=== PATIENT | female | born 1950 | race Caucasian/White ===

== ENCOUNTER 2018-05-10 11:21 | Emergency (ER) | payer MEDICARE ==
[2018-05-10 11:35] VITALS: RESP 18; BMI 31.3
[2018-05-10] MEDS ORDERED: Sodium Chloride 0.9% 1,000 ML IV STA (11:51)
[2018-05-10] MEDS ORDERED: Iohexol 240 (50 ml) PO ONE (11:52)
[2018-05-10] MEDS ORDERED: Iohexol 240 (50 ml) ONE (12:11)
--- NOTE | 2018-05-10 12:44 | ED PDOC ---
HPI: Abdomen Time Seen by Provider: 05/10/18 11:36 Chief Complaint (Nursing): Abdominal Pain Chief Complaint (Provider): abdominal pain constipation History Per: Patient History/Exam Limitations: no limitations Onset/Duration Of Symptoms: Days (3), Gradual Current Symptoms Are (Timing): Still Present Location Of Pain/Discomfort: Diffuse Quality Of Discomfort: Cramping Associated Symptoms: Nausea, Vomiting, Loss Of Appetite, Constipation. denies: Urinary Symptoms Exacerbating Factors: Food, Other (milk of magnesia) Alleviating Factors: None Additional Complaint(s): 68 female c/o crampy abdominal pain with 3-4 episodes nonbloody vomiting and new onset constipation starting about 3 days ago. Took milk of magnesia over the weekend and pain worsened, crampy, with vomiting thereafter. Denies blood per rectum, fever, syncope or urinary symptoms/ Past Medical History Reviewed: Historical Data, Nursing Documentation, Vital Signs Vital Signs: Last Vital Signs Temp 98.3 F 05/10/18 11:34 Pulse 112 H 05/10/18 11:34 Resp 18 05/10/18 11:34 BP 136/95 H 05/10/18 11:34 Pulse Ox 96 05/10/18 11:34 - Medical History PMH: HTN, Hypercholesterolemia - Surgical History Surgical History: - Family History Family History: States: Unknown Family Hx - Social History Current smoker - smoking cessation education provided: No - Home Medications Home Medications: Ambulatory Orders Medication Instructions Recorded Bisacodyl [Dulcolax] 10 mg RC BID PRN #10 supp.rect 05/10/18 Ondansetron ODT [Zofran ODT] 4 mg PO Q6 PRN #10 odt 05/10/18 Peg Electrolyte Lavage Solut 500 ml PO BID PRN #1 bottle 05/10/18 [Golytely] Ranitidine HCl [Zantac] 150 mg PO BID #14 tablet 05/10/18 Sod Phos,M-B/Na Phos,Di-Ba [Fleet 135 ml RC BID PRN #4 enema 05/10/18 Enema] - Allergies Allergies/Adverse Reactions: Allergies Allergy/AdvReac Type Severity Reaction Status Date / Time No Known Allergies Allergy Verified 05/10/18 11:50 Review of Systems ROS Statement: Except As Marked, All Systems Reviewed And Found Negative Constitutional: Negative for: Fever, Chills ENT: Negative for: Throat Pain Cardiovascular: Negative for: Chest Pain Respiratory: Negative for: Shortness of Breath Gastrointestinal: Positive for: Vomiting, Abdominal Pain, Constipation Genitourinary Female: Negative for: Dysuria, Hematuria Musculoskeletal: Negative for: Neck Pain, Back Pain Skin: Negative for: Rash, Lesions, Jaundice Neurological: Negative for: Weakness, Numbness, Headache, Dizziness Psych: Negative for: Suicidal ideation Physical Exam - Reviewed Nursing Documentation Reviewed: Yes Vital Signs Reviewed: Yes - Physical Exam Appears: Positive for: Well, Non-toxic, No Acute Distress Head Exam: Positive for: ATRAUMATIC, NORMAL INSPECTION, NORMOCEPHALIC Skin: Positive for: Normal Color, Warm, DRY Eye Exam: Positive for: EOMI, Normal appearance, PERRL ENT: Positive for: Normal ENT Inspection Neck: Positive for: Normal, Painless ROM Cardiovascular/Chest: Positive for: Regular Rate, Rhythm Respiratory: Positive for: CNT, Normal Breath Sounds Gastrointestinal/Abdominal: Positive for: Soft, Tenderness (mild diffuse tenderness), Distended (softly) Back: Positive for: Normal Inspection Rectal: Positive for: Rectal Tone Is: (normal), Other (small pliable stools rectal vault no impaction). Negative for: Black Stool, Blood Streaked Stool, Tenderness Extremity: Positive for: Normal ROM Neurologic/Psych: Positive for: Alert, Oriented. Negative for: Motor/Sensory Deficits - Laboratory Results Result Diagrams: 05/10/18 12:40 05/10/18 12:40 - ECG O2 Sat by Pulse Oximetry: 96 Medical Decision Making Medical Decision Making: workup for new abd pain with constipation and nausea in elderly female initiated obtain labs, CT abd pelv r/o obstruction. labs reviewed, reveal elev WBC 17.9 chem unremarkable 05/10/2018 PROCEDURE: CT Abdomen and Pelvis. HISTORY: Abdominal pain; new onset constipation COMPARISON: No prior study available for comparison TECHNIQUE: Contiguous axial images of the abdomen and pelvis performed following oral and intravenous injection of approximately 95 cc Omnipaque 300 contrast material. Additional 2D sagittal and coronal reformats generated. Radiation dose: Total exam DLP = 833.19 mGy-cm. This CT exam was performed using one or more of the following dose reduction techniques: Automated exposure control, adjustment of the mA and/or kV according to patient size, and/or use of iterative reconstruction technique. FINDINGS: LOWER THORAX: Heart size is borderline enlarged. There is a small hiatal hernia with oral contrast material seen in the distal esophagus which could be secondary to a dysmotility and/or reflux. Minimal wall thickening of the distal esophagus which may in part be secondary to protrusion of gastric mucosa. Clinical correlation recommended to determine whether endoscopy follow-up is indicated given reflux which is evident. Mild passive/dependent type atelectasis. There also appears to be some chronic atelectasis/scarring changes the lingular and middle lobe regions. LIVER: Liver exhibits relatively normal size measuring approximately 15 cm in CC dimension. Mild fatty hepatic infiltration.. There is a very tiny subcentimeter focus low attenuation anterior superior aspect medial segment left lobe liver just to the left midline.. There is a slightly larger elliptical shaped focus low attenuation also noted in the superior aspect right lobe liver. Both of these lesions seen on axial series 3, image number 26 . Another small focus of low attenuation inferior aspect left lobe liver seen on axial series 3, image 44 and similar focus inferior aspect right lobe seen on axial series 3, image 53. These foci too small to characterize though could represent small cysts and/or hemangiomas. Follow-up at interval could be performed to assess stability portal and splenic veins opacified. GALLBLADDER AND BILE DUCTS: Gallbladder physiologically distended. No evidence of intraluminal gallbladder calculi. PANCREAS: Pancreas is atrophic and fatty replaced. No obvious pancreatic masses collections or calcifications. SPLEEN: Spleen exhibits normal size and attenuation pattern without mass collection or calcification. Of. There is a small amount of perisplenic ascites of uncertain etiology. ADRENALS: There is an approximately 18 mm left adrenal nodule with a elliptical shaped eccentric focus of low attenuation. Follow-up nonemergent noncontrast MRI of the adrenal glands could be performed for further evaluation. KIDNEYS AND URETERS: Kidneys demonstrate relatively symmetric nephrograms. No evidence of nephrolithiasis or hydronephrosis. There are multiple low-attenuation foci scattered throughout both kidneys the largest of which is located along the posteromedial aspect midpole right kidney that is partially exophytic measuring 3.3 x 3.0 cm with Hounsfield units ranging from 10 to 20. This probably represents a hyperdense cyst. The largest partially exophytic low-attenuation lesion arising from the posterior cortex upper/midpole left kidney, measures approximately 17 mm, and exhibits Hounsfield units in the upper teens that may also represent small cyst consistent with a slightly hyperdense cyst. The other small foci too small to characterize. BLADDER: Urinary bladder incompletely distended with minimal wall thickening. Rule out cystitis. REPRODUCTIVE: Unremarkable as visualized. There is a tiny amount of free fluid seen in the cul de sac and adjacent to the left aspect of the uterine fundus. APPENDIX: Normal appendix. BOWEL: Evaluation of the bowel is somewhat limited due to incomplete opacification. The stomach is distended with oral contrast material and air. Visualized loops of small bowel exhibit normal contour and caliber. No evidence of acute mechanical small bowel obstruction. There is a large amount of stool seen throughout the colon from cecum to the distal descending colon region. . Scattered colonic diverticula also seen along the sigmoid colon however no definitive radiographic evidence of acute diverticulitis. The largest amount of which is located in the cecum. Findings are consistent with this patient's history of constipation. There are a few scattered colonic diverticula also seen PERITONEUM: No gross free intraperitoneal air. Small amount of perisplenic and pelvic ascites.. Small amount of ascites also seen adjacent to the inferior aspect of the cecum.. In addition, a small localized area of ascites left anterolateral aspect of the lower abdomen bordering the peritoneal surface. Small fat containing umbilical hernia. LYMPH NODES: Unremarkable. No enlarged lymph nodes. VASCULATURE: Unremarkable. No aortic aneurysm. Mild aortic atherosclerotic calcification or mural plaque present. BONES: Multilevel degenerative spondylosis of the lower thoracic and lumbar spine. Slight anterior subluxation L4 over L5 on felt to be secondary to hypertrophic facets.. Note made of scattered lucencies throughout the lower thoracic and upp er lumbar spine nonspecific. Clinical correlation recommended. OTHER FINDINGS: None. IMPRESSION: Findings consistent with cysts fairly significant constipation. Scattered colonic diverticula without radiographic evidence of acute diverticulitis as detailed above. There is a small amount of abdominal and pelvic ascites as detailed above. Moderate fatty hepatic infiltration. There are multiple tiny low-attenuation foci scattered throughout the hepatic parenchyma too small to characterize though may represent some cysts and/or small hemangiomata. Follow-up interval recommended to assess stability. Moderate fatty hepatic infiltration. Left adrenal mass. Recommend follow-up nonemergent noncontrast MRI of the adrenal glands. Multiple of low-attenuation foci both kidneys likely representing renal cysts however follow-up interval recommended also to assess stability. There are scattered nonspecific lucency seen throughout the thoracic and lumbar spine of uncertain etiology. See above discussion for additional details and findings rectal exam performed w MILLI Dorman as motor runner after verbal consent obtained, no fecal impaction palpable 530p All results explained including adrenal mass and need for followup MRI via PMD. Rx trial of GoLytlely, suppository and enema for constipation Referral GI also. PMD in [facility]. Disposition - Clinical Impression Clinical Impression: Constipation, Abdominal discomfort, Vomiting, Adrenal mass - Patient ED Disposition Is Patient to be Admitted: No Counseled Patient/Family Regarding: Studies Performed, Diagnosis, Need For Followup, Rx Given - Disposition Referrals: Ozzie So MD [Staff Provider] - Disposition: Routine/Home Disposition Time: 18:27 Condition: STABLE Additional Instructions: Followup with your doctor for dedicated imaging of your adrenal gland due to mass seen on CT. Trial of medications for constipation. Use enema, suppository, and oral medications as directed. Return to ER for any worse or new symptoms. Patient Name / ID : JOSH MAI / [id number] Exam Date : 05/10/2018 15:47:48 ( Approved ) Study Comment : Sex / Age : F / 68Y Dictator : Luis Boateng MD Search Marketing Coordinator : Banking Teacher : Luis Boateng MD Approver2 : Report Date : 05/10/2018 16:03:54 PROCEDURE: CT Abdomen and Pelvis. HISTORY: Abdominal pain; new onset constipation COMPARISON: No prior study available for comparison TECHNIQUE: Contiguous axial images of the abdomen and pelvis performed following oral and intravenous injection of approximately 95 cc Omnipaque 300 contrast material. Additional 2D sagittal and coronal reformats generated. Radiation dose: Total exam DLP = 833.19 mGy-cm. This CT exam was performed using one or more of the following dose reduction techniques: Automated exposure control, adjustment of the mA and/or kV according to patient size, and/or use of iterative reconstruction technique. FINDINGS: LOWER THORAX: Heart size is borderline enlarged. There is a small hiatal hernia with oral contrast material seen in the distal esophagus which could be secondary to a dysmotility and/or reflux. Minimal wall thickening of the distal esophagus which may in part be secondary to protrusion of gastric mucosa. Clinical correlation recommended to determine whether endoscopy follow-up is indicated given reflux which is evident. Mild passive/dependent type atelectasis. There also appears to be some chronic atelectasis/scarring changes the lingular and middle lobe regions. LIVER: Liver exhibits relatively normal size measuring approximately 15 cm in CC dimension. Mild fatty hepatic infiltration.. There is a very tiny subcentimeter focus low attenuation anterior superior aspect medial segment left lobe liver just to the left midline.. There is a slightly larger elliptical shaped focus low attenuation also noted in the superior aspect right lobe liver. Both of these lesions seen on axial series 3, image number 26 . Another small focus of low attenuation inferior aspect left lobe liver seen on axial series 3, image 44 and similar focus inferior aspect right lobe seen on axial series 3, image 53. These foci too small to characterize though could represent small cysts and/or hemangiomas. Follow-up at interval could be performed to assess stability portal and splenic veins opacified. GALLBLADDER AND BILE DUCTS: Gallbladder physiologically distended. No evidence of intraluminal gallbladder calculi. PANCREAS: Pancreas is atrophic and fatty replaced. No obvious pancreatic masses collections or calcifications. SPLEEN: Spleen exhibits normal size and attenuation pattern without mass collection or calcification. Of. There is a small amount of perisplenic ascites of uncertain etiology. ADRENALS: There is an approximately 18 mm left adrenal nodule with a elliptical shaped eccentric focus of low attenuation. Follow-up nonemergent noncontrast MRI of the adrenal glands could be performed for further evaluation. KIDNEYS AND URETERS: Kidneys demonstrate relatively symmetric nephrograms. No evidence of nephrolithiasis or hydronephrosis. There are multiple low-attenuation foci scattered throughout both kidneys the largest of which is located along the pos teromedial aspect midpole right kidney that is partially exophytic measuring 3.3 x 3.0 cm with Hounsfield units ranging from 10 to 20. This probably represents a hyperdense cyst. The largest partially exophytic low-attenuation lesion arising from the posterior cortex upper/midpole left kidney, measures approximately 17 mm, and exhibits Hounsfield units in the upper teens that may also represent small cyst consistent with a slightly hyperdense cyst. The other small foci too small to characterize. BLADDER: Urinary bladder incompletely distended with minimal wall thickening. Rule out cystitis. REPRODUCTIVE: Unremarkable as visualized. There is a tiny amount of free fluid seen in the cul de sac and adjacent to the left aspect of the uterine fundus. APPENDIX: Normal appendix. BOWEL: Evaluation of the bowel is somewhat limited due to incomplete opacification. The stomach is distended with oral contrast material and air. Visualized loops of small bowel exhibit normal contour and caliber. No evidence of acute mechanical small bowel obstruction. There is a large amount of stool seen throughout the colon from cecum to the distal descending colon region. . Scattered colonic diverticula also seen along the sigmoid colon however no definitive radiographic evidence of acute diverticulitis. The largest amount of which is located in the cecum. Findings are consistent with this patient's history of constipation. There are a few scattered colonic diverticula also seen PERITONEUM: No gross free intraperitoneal air. Small amount of perisplenic and pelvic ascites.. Small amount of ascites also seen adjacent to the inferior aspect of the cecum.. In addition, a small localized area of ascites left anterolateral aspect of the lower abdomen bordering the peritoneal surface. Small fat containing umbilical hernia. LYMPH NODES: Unremarkable. No enlarged lymph nodes. VASCULATURE: Unremarkable. No aortic aneurysm. Mild aortic atherosclerotic calcification or mural plaque present. BONES: Multilevel degenerative spondylosis of the lower thoracic and lumbar spine. Slight anterior subluxation L4 over L5 on felt to be secondary to hypertrophic facets.. Note made of scattered lucencies throughout the lower thoracic and upper lumbar spine nonspecific. Clinical correlation recommended. OTHER FINDINGS: None. IMPRESSION: Findings consistent with cysts fairly significant constipation. Scattered colonic diverticula without radiographic evidence of acute diverticulitis as detailed above. There is a small amount of abdominal and pelvic ascites as detailed above. Moderate fatty hepatic infiltration. There are multiple tiny low-attenuation foci scattered throughout the hepatic parenchyma too small to characterize though may represent some cysts and/or small hemangiomata. Follow-up interval recommended to assess stability. Moderate fatty hepatic infiltration. Left adrenal mass. Recommend follow-up nonemergent noncontrast MRI of the adrenal glands. Multiple of low-attenuation foci both kidneys likely representing renal cysts however follow-up interval recommended also to assess stability. There are scattered nonspecific lucency seen throughout the thoracic and lumbar spine of uncertain etiology. See above discussion for additional details and findings Prescriptions: Bisacodyl [Dulcolax] 10 mg RC BID PRN #10 supp.rect PRN Reason: Constipation Ondansetron ODT [Zofran ODT] 4 mg PO Q6 PRN #10 odt PRN Reason: Nausea/Vomiting Peg Electrolyte Lavage Solut [Golytely] 500 ml PO BID PRN #1 bottle PRN Reason: Constipation Ranitidine HCl [Zantac] 150 mg PO BID #14 tablet Sod Phos,M-B/Na Phos,Di-Ba [Fleet Enema] 135 ml RC BID PRN #4 enema PRN Reason: Constipation Instructions: Constipation in Adults, MRI Scan, Acute Abdomen (Belly Pain), Adult (DC) Forms: [employer] (Kinyarwanda)
[2018-05-10 12:47] LABS: SQUAMOUS EPITHIAL 1 /hpf (0-5); URINE BACTERIA RARE (<OCC); URINE BILIRUBIN NEGATIVE (NEGATIVE); URINE BLOOD SMALL (NEGATIVE); URINE CLARITY CLOUDY (Clear); URINE GLUCOSE (UA) NEG (NEGATIVE); URINE LEUKOCYTE ESTERASE NEG Leu/uL (Negative); URINE PROTEIN 30 mg/dL (NEGATIVE); URINE UROBILINOGEN 0.2-1.0 mg/dL (0.2-1.0)
[2018-05-10 13:02] LABS: URINE COLOR YELLOW (YELLOW)
[2018-05-10 13:09] LABS: BASO % 0.1 % (0.0-2.0); HEMOGLOBIN 15.6 g/dL (12.0-16.0); LYMPH # 0.9 K/uL (1.0-4.3); LYMPH % 4.9 % (20.0-40.0); MEAN CELL VOLUME 87.6 fl (81.0-99.0); MEAN CORPUSCULAR HEMOGLOBIN 28.6 pg (27.0-31.0); MEAN CORPUSCULAR HGB CONC 32.7 g/dL (33.0-37.0); MEAN PLATELET VOLUME 7.2 fl (7.2-11.7); MONO # 1.2 K/uL (0.0-0.8); MONO % 6.8 % (0.0-10.0); NEUT # 15.8 K/uL (1.8-7.0); NEUT % 88.2 % (50.0-75.0); PLATELET COUNT 370 K/uL (130-400); RBC 5.44 Mil/uL (3.80-5.20); RED CELL DISTRIBUTION WIDTH 14.9 % (11.5-14.5); WHITE BLOOD COUNT 17.9 K/uL (4.8-10.8)
[2018-05-10 13:14] LABS: ALB/GLOB RATIO 1.1 (1.0-2.1); ALBUMIN 4.6 g/dL (3.5-5.0); ALT/SGPT 23 U/L (9-52); AST/SGOT 23 U/L (14-36); BLOOD UREA NITROGEN 24 mg/dl (7-17); CALCIUM 10.3 mg/dL (8.4-10.2); GFR NON-AFRICAN AMERICAN > 60; LIPASE 20 U/L (23-300)
[2018-05-10 14:24] LABS: BANDS 1 % (0-2); LYMPHOCYTE 3 % (20-50); MONOCYTE 4 % (0-10); NEUTROPHIL 92 % (42-75); PLATELET ESTIMATE NORMAL (NORMAL); TOTAL CELLS COUNTED 100
[2018-05-10] MEDS ORDERED: Iohexol 300 100 ML IJ ONE (14:51)
[2018-05-10] MEDS ORDERED: Sodium Chloride 0.9% 50 ML IV ONE (14:51)
[2018-05-10] MEDS ORDERED: Alum-Mag Hydrox-Simethicone Susp (30 mL) ONE (15:00)
[2018-05-10 15:14] LABS: VENOUS BLOOD GAS BASE EXCESS 4.9 mmol/L (0.0-2.0); VENOUS BLOOD GAS PCO2 41 mmHg (40-60); VENOUS BLOOD GAS PO2 54 mm/Hg (30-55); VENOUS BLOOD PH 7.46 (7.32-7.43)
--- NOTE | 2018-05-10 17:15 | CT ---
Date of service: 05/10/2018 PROCEDURE: CT Abdomen and Pelvis. HISTORY: Abdominal pain; new onset constipation COMPARISON: No prior study available for comparison TECHNIQUE: Contiguous axial images of the abdomen and pelvis performed following oral and intravenous injection of approximately 95 cc Omnipaque 300 contrast material. Additional 2D sagittal and coronal reformats generated. Radiation dose: Total exam DLP = 833.19 mGy-cm. This CT exam was performed using one or more of the following dose reduction techniques: Automated exposure control, adjustment of the mA and/or kV according to patient size, and/or use of iterative reconstruction technique. FINDINGS: LOWER THORAX: Heart size is borderline enlarged. There is a small hiatal hernia with oral contrast material seen in the distal esophagus which could be secondary to a dysmotility and/or reflux. Minimal wall thickening of the distal esophagus which may in part be secondary to protrusion of gastric mucosa. Clinical correlation recommended to determine whether endoscopy follow-up is indicated given reflux which is evident. Mild passive/dependent type atelectasis. There also appears to be some chronic atelectasis/scarring changes the lingular and middle lobe regions. LIVER: Liver exhibits relatively normal size measuring approximately 15 cm in CC dimension. Mild fatty hepatic infiltration.. There is a very tiny subcentimeter focus low attenuation anterior superior aspect medial segment left lobe liver just to the left midline.. There is a slightly larger elliptical shaped focus low attenuation also noted in the superior aspect right lobe liver. Both of these lesions seen on axial series 3, image number 26 . Another small focus of low attenuation inferior aspect left lobe liver seen on axial series 3, image 44 and similar focus inferior aspect right lobe seen on axial series 3, image 53. These foci too small to characterize though could represent small cysts and/or hemangiomas. Follow-up at interval could be performed to assess stability portal and splenic veins opacified. GALLBLADDER AND BILE DUCTS: Gallbladder physiologically distended. No evidence of intraluminal gallbladder calculi. PANCREAS: Pancreas is atrophic and fatty replaced. No obvious pancreatic masses collections or calcifications. SPLEEN: Spleen exhibits normal size and attenuation pattern without mass collection or calcification. Of. There is a small amount of perisplenic ascites of uncertain etiology. ADRENALS: There is an approximately 18 mm left adrenal nodule with a elliptical shaped eccentric focus of low attenuation. Follow-up nonemergent noncontrast MRI of the adrenal glands could be performed for further evaluation. KIDNEYS AND URETERS: Kidneys demonstrate relatively symmetric nephrograms. No evidence of nephrolithiasis or hydronephrosis. There are multiple low-attenuation foci scattered throughout both kidneys the largest of which is located along the posteromedial aspect midpole right kidney that is partially exophytic measuring 3.3 x 3.0 cm with Hounsfield units ranging from 10 to 20. This probably represents a hyperdense cyst. The largest partially exophytic low-attenuation lesion arising from the posterior cortex upper/midpole left kidney, measures approximately 17 mm, and exhibits Hounsfield units in the upper teens that may also represent small cyst consistent with a slightly hyperdense cyst. The other small foci too small to characterize. BLADDER: Urinary bladder incompletely distended with minimal wall thickening. Rule out cystitis. REPRODUCTIVE: Unremarkable as visualized. There is a tiny amount of free fluid seen in the cul de sac and adjacent to the left aspect of the uterine fundus. APPENDIX: Normal appendix. BOWEL: Evaluation of the bowel is somewhat limited due to incomplete opacification. The stomach is distended with oral contrast material and air. Visualized loops of small bowel exhibit normal contour and caliber. No evidence of acute mechanical small bowel obstruction. There is a large amount of stool seen throughout the colon from cecum to the distal descending colon region. . Scattered colonic diverticula also seen along the sigmoid colon however no definitive radiographic evidence of acute diverticulitis. The largest amount of which is located in the cecum. Findings are consistent with this patient's history of constipation. There are a few scattered colonic diverticula also seen PERITONEUM: No gross free intraperitoneal air. Small amount of perisplenic and pelvic ascites.. Small amount of ascites also seen adjacent to the inferior aspect of the cecum.. In addition, a small localized area of ascites left anterolateral aspect of the lower abdomen bordering the peritoneal surface. Small fat containing umbilical hernia. LYMPH NODES: Unremarkable. No enlarged lymph nodes. VASCULATURE: Unremarkable. No aortic aneurysm. Mild aortic atherosclerotic calcification or mural plaque present. BONES: Multilevel degenerative spondylosis of the lower thoracic and lumbar spine. Slight anterior subluxation L4 over L5 on felt to be secondary to hypertrophic facets.. Note made of scattered lucencies throughout the lower thoracic and upper lumbar spine nonspecific. Clinical correlation recommended. OTHER FINDINGS: None. IMPRESSION: Findings consistent with cysts fairly significant constipation. Scattered colonic diverticula without radiographic evidence of acute diverticulitis as detailed above. There is a small amount of abdominal and pelvic ascites as detailed above. Moderate fatty hepatic infiltration. There are multiple tiny low-attenuation foci scattered throughout the hepatic parenchyma too small to characterize though may represent some cysts and/or small hemangiomata. Follow-up interval recommended to assess stability. Moderate fatty hepatic infiltration. Left adrenal mass. Recommend follow-up nonemergent noncontrast MRI of the adrenal glands. Multiple of low-attenuation foci both kidneys likely representing renal cysts however follow-up interval recommended also to assess stability. There are scattered nonspecific lucency seen throughout the thoracic and lumbar spine of uncertain etiology. See above discussion for additional details and findings
[2018-05-10 18:06] VITALS: BP 138/53; PULSE 104; TEMP 98.7
[2018-05-10 18:28] VITALS: O2SAT 96
== END 2018-05-10 18:21 | disposition home or self-care (01) ==
LOC: H.ER 11:21
DX: K59.00 Constipation, unspecified (principal); R10.9 Unspecified abdominal pain; R11.10 Vomiting, unspecified; E27.9 Disorder of adrenal gland, unspecified; I10 Essential (primary) hypertension; Z79.899 Other long term (current) drug therapy; E78.00 Pure hypercholesterolemia, unspecified
CPT/HCPCS: 74177; 80053; 81003; 82803; 83690; 85025; 96365; 96375; 99284; J2405; J7030; Q9966; Q9967

== ENCOUNTER 2018-05-14 14:15 | Emergency (ER) | payer MEDICARE ==
[2018-05-14 14:15] VITALS: BMI 31.3
[2018-05-14 14:27] VITALS: O2SAT 96
--- NOTE | 2018-05-14 14:52 | ED PDOC ---
HPI: Abdomen Time Seen by Provider: 05/14/18 14:29 Chief Complaint (Nursing): GI Problem Chief Complaint (Provider): GI Problem History Per: Patient, Other (friend) History/Exam Limitations: no limitations Onset/Duration Of Symptoms: Days (x5) Current Symptoms Are (Timing): Still Present Additional Complaint(s): 68 year old female with pmHx of HTN and vertigo, presents to ED with a friend accompanying her, for an evaluation of persistent constipation associated with decreased appetite and abdominal discomfort ongoing for 5 days. Patient was initially seen in ED on 05/10/18 then discharged with medications. Patient states she has been taking suppositories as prescribed with small amount of BM on the first two days. She denies taking pain medications or laxatives for relief. Additionally, she has not been eating or drinking much since onset of symptoms. Patient is requesting an enema and pain medication for discomfort. PCP: none provided Past Medical History Reviewed: Historical Data, Nursing Documentation, Vital Signs Vital Signs: Last Vital Signs Temp 98.9 F 05/14/18 14:20 Pulse 101 H 05/14/18 14:20 Resp 18 05/14/18 14:20 BP 101/50 L 05/14/18 14:20 Pulse Ox 96 05/14/18 14:20 - Medical History PMH: HTN, Hypercholesterolemia Other PMH: vertigo - Surgical History Surgical History: Other surgeries: cataract - Family History Family History: States: Unknown Family Hx - Living Arrangements Living Arrangements: Alone - Home Medications Home Medications: Ambulatory Orders Medication Instructions Recorded Bisacodyl [Dulcolax] 10 mg RC BID PRN #10 supp.rect 05/10/18 Ondansetron ODT [Zofran ODT] 4 mg PO Q6 PRN #10 odt 05/10/18 Peg Electrolyte Lavage Solut 500 ml PO BID PRN #1 bottle 05/10/18 [Golytely] Ranitidine HCl [Zantac] 150 mg PO BID #14 tablet 05/10/18 Sod Phos,M-B/Na Phos,Di-Ba [Fleet 135 ml RC BID PRN #4 enema 05/10/18 Enema] Nitrofurantoin Macrocrystals 100 mg PO BID #14 cap 05/14/18 [Macrobid] Polyethylene Glycol 3350 [Miralax] 17 gm PO DAILY #5 packet 05/14/18 - Allergies Allergies/Adverse Reactions: Allergies Allergy/AdvReac Type Severity Reaction Status Date / Time No Known Allergies Allergy Verified 05/14/18 14:27 Review of Systems ROS Statement: Except As Marked, All Systems Reviewed And Found Negative Gastrointestinal: Positive for: Abdominal Pain (discomfort), Constipation, Other (decreased appetite) Physical Exam - Reviewed Nursing Documentation Reviewed: Yes Vital Signs Reviewed: Yes - Physical Exam Appears: Positive for: No Acute Distress Head Exam: Positive for: ATRAUMATIC, NORMAL INSPECTION, NORMOCEPHALIC Skin: Positive for: Normal Color ENT: Positive for: Other (dry mucous membranes). Negative for: Pharyngeal Erythema Neck: Positive for: Normal, Supple Cardiovascular/Chest: Positive for: Regular Rate, Rhythm Respiratory: Positive for: Normal Breath Sounds. Negative for: Respiratory Distress Gastrointestinal/Abdominal: Positive for: Normal Exam, Soft. Negative for: Tenderness, Guarding, Rebound Extremity: Positive for: Normal ROM (upper/lower) Neurologic/Psych: Positive for: Alert, Oriented (x3). Negative for: Motor/Sensory Deficits - Laboratory Results Result Diagrams: 05/14/18 15:15 05/14/18 15:15 - ECG O2 Sat by Pulse Oximetry: 96 (RA) Pulse Ox Interpretation: Normal - Progress Re-evaluation Time: 17:05 Condition: Re-examined, Improved Medical Decision Making Medical Decision Making: Initial Impression: Constipation Differential diagnosis: SBO - less likely; dehydration; UTI Initial Plan: * Labs with urine * XR ABD --CT ABD/pelvis from 05/10/18 reviewed: IMPRESSION: Findings consistent with cysts fairly significant constipation. Scattered colonic diverticula without radiographic evidence of acute diverticulitis as detailed above. There is a small amount of abdominal and pelvic ascites as d etailed above. Moderate fatty hepatic infiltration. There are multiple tiny low-attenuation foci scattered throughout the hepatic parenchyma too small to characterize though may represent some cysts and/or small hemangiomata. Follow-up interval recommended to assess stability. Moderate fatty hepatic infiltration. Left adrenal mass. Recommend follow-up nonemergent noncontrast MRI of the adren al glands. Multiple of low-attenuation foci both kidneys likely representing renal cysts however follow-up interval recommended also to assess stability. There are scattered nonspecific lucency seen throughout the thoracic and lumbar spine of uncertain etiology. Time: 1640 --XR ABD FINDINGS: BOWEL: Normal bowel gas pattern. There is large amount of retained stool. The stool is intermixed with oral contrast material in the right colon as a result of recent CT examination of 05/10/2018 with oral contrast material. There is no evidence of fecal impaction. There is no hepatic or splenic enlargement. No masses or abnormal intra-abdominal calcifications are seen. BONES: Normal. OTHER FINDINGS: None. IMPRESSION: Retained stool. No evidence of bowel obstruction. Time: 1645 --UA reviewed: (+) dehydration. Pending enema then re-evaluation. Scribe Attestation: Documented by Pamela Brownlee, acting as a scribe for Benigno Garza MD. Provider Scribe Attestation: All medical record entries made by the Scribe were at my direction and personally dictated by me. I have reviewed the chart and agree that the record accurately reflects my personal performance of the history, physical exam, medical decision making, and the department course for this patient. I have also personally directed, reviewed, and agree with the discharge instructions and disposition. Disposition - Clinical Impression Clinical Impression: Constipation, UTI (urinary tract infection) - Patient ED Disposition Is Patient to be Admitted: No Doctor Will See Patient In The: Office Counseled Patient/Family Regarding: Studies Performed, Diagnosis, Need For Followup - Disposition Referrals: [facility] [Outside] Disposition: Routine/Home Disposition Time: 18:02 Condition: GOOD Additional Instructions: SERGEI MORENO, thank you for letting us take care of you today. Your provider was Benigno Garza MD and you were treated for CONSTIPATED. The emergency medical care you received today was directed at your acute symptoms. If you were prescribed any medication, please fill it and take as directed. It may take several days for your symptoms to resolve. Return to the Emergency Department if your symptoms worsen, do not improve, or if you have any other problems. Please contact your doctor or call one of the physicians/clinics you have been referred to that are listed on the Patient Visit Information form that is included in your discharge packet. Bring any paperwork you were given at discharge with you along with any medications you are taking to your follow up visit. Our treatment cannot replace ongoing medical care by a primary care provider outside of the emergency department. Thank you for allowing the [facility] team to be part of your care today. If you had an X-Ray or CT scan: A Radiologist will review the ED reading if any change in treatment is needed we will contact you. If you had a blood, urine, or wound culture: It will take several days for the results, if any change in treatment is needed we will contact you. If you had an STI test: It will take 48 hours for the results. Please call after 1 week if you have not heard back. Prescriptions: Nitrofurantoin Macrocrystals [Macrobid] 100 mg PO BID #14 cap Polyethylene Glycol 3350 [Miralax] 17 gm PO DAILY #5 packet Instructions: Urinary Tract Infections in Adults, Constipation, Adult (DC)
[2018-05-14 15:42] LABS: BASO % 0.1 % (0.0-2.0); EOS # 0.1 K/uL (0.0-0.7); EOS % 0.6 % (0.0-4.0); HEMOGLOBIN 13.2 g/dL (12.0-16.0); LYMPH # 0.8 K/uL (1.0-4.3); LYMPH % 6.2 % (20.0-40.0); MEAN CELL VOLUME 87.9 fl (81.0-99.0); MEAN CORPUSCULAR HEMOGLOBIN 28.6 pg (27.0-31.0); MEAN CORPUSCULAR HGB CONC 32.5 g/dL (33.0-37.0); MEAN PLATELET VOLUME 7.2 fl (7.2-11.7); MONO # 0.9 K/uL (0.0-0.8); MONO % 6.9 % (0.0-10.0); NEUT # 11.1 K/uL (1.8-7.0); NEUT % 86.2 % (50.0-75.0); PLATELET COUNT 307 K/uL (130-400); RBC 4.63 Mil/uL (3.80-5.20); RED CELL DISTRIBUTION WIDTH 14.9 % (11.5-14.5); WHITE BLOOD COUNT 12.9 K/uL (4.8-10.8)
[2018-05-14 15:57] LABS: ALBUMIN 3.5 g/dL (3.5-5.0); ALT/SGPT 34 U/L (9-52); AST/SGOT 36 U/L (14-36); BLOOD UREA NITROGEN 22 mg/dl (7-17); CALCIUM 9.4 mg/dL (8.4-10.2); GFR NON-AFRICAN AMERICAN 55; LIPASE 23 U/L (23-300)
--- NOTE | 2018-05-14 16:44 | RAD ---
Date of service: 05/14/2018 HISTORY: constipation COMPARISON: None available. FINDINGS: BOWEL: Normal bowel gas pattern. There is large amount of retained stool. The stool is intermixed with oral contrast material in the right colon as a result of recent CT examination of 05/10/2018 with oral contrast material. There is no evidence of fecal impaction. There is no hepatic or splenic enlargement. No masses or abnormal intra-abdominal calcifications are seen. BONES: Normal. OTHER FINDINGS: None. IMPRESSION: Retained stool. No evidence of bowel obstruction.
[2018-05-14 16:49] LABS: LYMPHOCYTE 7 % (20-50); MONOCYTE 7 % (0-10); NEUTROPHIL 86 % (42-75); PLATELET ESTIMATE NORMAL (NORMAL); TOTAL CELLS COUNTED 100
[2018-05-14 16:50] LABS: ANISOCYTOSIS SLIGHT; HYPOCHROMIC SLIGHT; LARGE PLATELETS PRESENT; MICROCYTOSIS SLIGHT; OVALOCYTES MODERATE
[2018-05-14 18:42] VITALS: BP 125/76; PULSE 78; RESP 19; TEMP 97.6
== END 2018-05-14 18:00 | disposition home or self-care (01) ==
LOC: H.ER 14:15
DX: K59.00 Constipation, unspecified (principal); N39.0 Urinary tract infection, site not specified; E86.0 Dehydration; E78.00 Pure hypercholesterolemia, unspecified; E27.9 Disorder of adrenal gland, unspecified; I10 Essential (primary) hypertension; Z79.899 Other long term (current) drug therapy